=== PATIENT | male | born 1950 | race Caucasian/White ===

== ENCOUNTER 2016-09-26 16:06 | Inpatient (IN) | payer MEDICARE, BC ==
[~2016-09-26] VITALS: Ht 170.2 cm; Wt 85.7 kg
[~2016-09-26 16:06] MED LIST: AMLO10TA2 PO; ASPI325T PO; METO100T9 PO; PLAV75TA29 PO; QUIN5TAB6 PO; ROSU40 PO; ZETI10TA5 PO
[2016-09-30 09:03] VITALS: BP 139/73; PULSE 73; RESP 16; TEMP 98; O2SAT 99
[2016-09-30 09:14] LABS: AUTOMATED NEUTROPHIL # 4.6 TH/MM3 (1.8-7.7); BASOPHIL # 0.1 TH/MM3 (0-0.2); BASOPHIL % 0.8 % (0.0-2.0); EOSINOPHIL # 0.1 TH/MM3 (0-0.4); EOSINOPHIL % 1.7 % (0.0-4.0); HEMATOCRIT 42.6 % (39.0-51.0); HEMO FLAGS DIFF FINAL; LYMPH % 35.6 % (9.0-44.0); MEAN CORPUSCULAR HEMOGLOBIN 28.5 PG (27.0-34.0); MEAN CORPUSCULAR HGB CONC 34.3 % (32.0-36.0); MONO % 7.9 % (0.0-8.0); PLATELET COUNT 210 TH/MM3 (150-450); RED BLOOD COUNT 5.13 MIL/MM3 (4.50-5.90); RED CELL DISTRIBUTION WIDTH 14.1 % (11.6-17.2); WHITE BLOOD COUNT 8.6 TH/MM3 (4.0-11.0)
[2016-09-30 09:26] LABS: PROTHROMBIN TIME - PATIENT 10.6 SEC (9.8-11.6)
[2016-09-30] MEDS ORDERED: LACTATED RINGER'S 1000 ML IV SCH (09:30)
[2016-09-30] MEDS ORDERED: METOPROLOL TARTRATE 25 MG TAB PO PRN (09:30)
[2016-09-30] MEDS ORDERED: INSULIN HUMAN REGULAR 1,000 UNITS/10 ML VIAL SQ PRN (09:30)
[2016-09-30] MEDS ORDERED: SODIUM CHLORID 0.9% 500 ML IV SCH (09:30)
[2016-09-30 09:31] LABS: BICARBONATE 28.7 MEQ/L (21.0-32.0); POTASSIUM 3.4 MEQ/L (3.5-5.1)
[2016-09-30] MEDS ORDERED: FAMOTIDINE 20 MG/2 ML VIAL ONE (10:14)
[2016-09-30] MEDS ORDERED: HEPARIN SODIUM - IV 10,000 UNITS/10 ML VIAL ONE (10:56)
[2016-09-30] MEDS ORDERED: PROTAMINE SULFATE 50 MG/5 ML VIAL ONE (10:57)
[2016-09-30] MEDS ORDERED: HEPARIN SODIUM - SQ 10,000 UNITS/ML VIAL ONE (10:57)
[2016-09-30] MEDS ORDERED: IOHEXOL 300 MG/ML 50 ML BTL (for RAD DIAG) ONE (11:06)
[2016-09-30] MEDS ORDERED: LACTATED RINGER'S 1000 ML INJ 1,000 ML IV ONE (11:13)
[2016-09-30] MEDS ORDERED: NORMOSOL R INJ 1,000 ML IV ONE (11:13)
[2016-09-30] MEDS ORDERED: NEOSTIGMINE 3 MG/3 ML SYR IV ONE (11:13)
[2016-09-30] MEDS ORDERED: ONDANSETRON HCL 4 MG/2 ML VIAL IV PUSH ONE (11:13)
[2016-09-30] MEDS ORDERED: ePHEDrine/NS 25 MG/5 ML SYR IV ONE (11:13)
[2016-09-30] MEDS ORDERED: PHENYLEPH/NS 1000 MCG/10 ML SYR IV ONE (11:13)
[2016-09-30] MEDS ORDERED: PROPOFOL 200 MG/20 ML AMP IV ONE (11:13)
[2016-09-30] MEDS ORDERED: MIDAZOLAM HCL 2 MG/2 ML VIAL ONE (11:14)
[2016-09-30] MEDS ORDERED: ceFAZolin 2 GM PREMIX 50 ML ONE (11:29)
[2016-09-30] MEDS ORDERED: IOHEXOL 300 MG/ML 50 ML BTL (for RAD DIAG) OTHER ONE (11:56)
[2016-09-30] MEDS ORDERED: Post-op Orders (for Pharmacy) MISC XX ONE (14:22)
[2016-09-30] MEDS ORDERED: DO NOT ADM ANY ANTICOAGULANT DRUGS XX PRN (14:25)
[2016-09-30] MEDS ORDERED: fentaNYL CITRATE 250 MCG/5 ML AMP ONE (14:35)
[2016-09-30] MEDS ORDERED: oxyCODONE/ACETAMINOPHEN 5 MG/325 MG TAB PO PRN (15:00)
[2016-09-30] MEDS ORDERED: MORPHINE SULFATE 4 MG/ML INJ IV PRN (15:00)
[2016-09-30] MEDS ORDERED: NALOXONE HCL 0.4 MG/ML AMP IV PRN (15:00)
[2016-09-30] MEDS ORDERED: SODIUM CHLORIDE 0.9% FLUSH 5 ML FLUSH IVF PRN (15:00)
[2016-09-30] MEDS ORDERED: ONDANSETRON HCL 4 MG/2 ML VIAL IV PRN (15:00)
[2016-09-30] MEDS: SODIUM CHLOR 0.9% 1000 ML INJ 1,000 ML IV SCH (15:19)
[2016-09-30] MEDS ORDERED: PANTOPRAZOLE SOD 40 MG DELAYED RELEASE TAB PO SCH (17:00)
[2016-09-30] MEDS: SODIUM CHLORIDE 0.9% FLUSH 5 ML FLUSH IVF SCH (21:00)
[2016-09-30] MEDS ORDERED: DOCUSATE SODIUM 100 MG CAP PO SCH (21:00)
[2016-09-30 21:30] VITALS: BP 130/91; PULSE 78; RESP 18; TEMP 98.3; O2SAT 100
[2016-09-30 23:00] VITALS: BP 119/76; PULSE 68; RESP 16; TEMP 97.9; O2SAT 100
[2016-10-01] MEDS: SODIUM CHLOR 0.9% 1000 ML INJ 1,000 ML IV SCH ×2 (02:00→12:00)
[2016-10-01 03:00] VITALS: BP 129/83; PULSE 71; RESP 18; TEMP 98.1; O2SAT 100
[2016-10-01 03:41] VITALS: O2SAT 98
[2016-10-01] MEDS: SODIUM CHLORIDE 0.9% FLUSH 5 ML FLUSH IVF SCH (08:50)
[2016-10-01] MEDS ORDERED: METOPROLOL SUCCINATE 50 MG EXTENDED RELEASE TAB PO SCH (09:00)
[2016-10-01] MEDS ORDERED: CLOPIDOGREL 75 MG TAB PO SCH (09:00)
[2016-10-01] MEDS ORDERED: EZETIMIBE 10 MG TAB PO SCH (09:00)
[2016-10-01 09:37] VITALS: BP 147/88; PULSE 84; RESP 18; TEMP 97; O2SAT 98
[2016-10-01 11:34] VITALS: O2SAT 97
[2016-10-01 11:43] VITALS: BP 120/70; PULSE 82; RESP 18; TEMP 98; O2SAT 98
[2016-10-01 13:01] LABS: AUTOMATED NEUTROPHIL # 5.6 TH/MM3 (1.8-7.7); BASOPHIL % 0.5 % (0.0-2.0); EOSINOPHIL # 0.2 TH/MM3 (0-0.4); HEMATOCRIT 38.8 % (39.0-51.0); HEMO FLAGS DIFF FINAL; LYMPH % 18.7 % (9.0-44.0); LYMPHOCYTE # 1.5 TH/MM3 (1.0-4.8); MEAN CELL VOLUME 83.8 FL (80.0-100.0); MEAN CORPUSCULAR HEMOGLOBIN 27.8 PG (27.0-34.0); MEAN CORPUSCULAR HGB CONC 33.2 % (32.0-36.0); NEUT % 69.8 % (16.0-70.0); PLATELET COUNT 196 TH/MM3 (150-450); RED BLOOD COUNT 4.63 MIL/MM3 (4.50-5.90); RED CELL DISTRIBUTION WIDTH 14.3 % (11.6-17.2); WHITE BLOOD COUNT 8.1 TH/MM3 (4.0-11.0)
[2016-10-01 13:25] LABS: BICARBONATE 27.2 MEQ/L (21.0-32.0); POTASSIUM 3.2 MEQ/L (3.5-5.1)
[2016-10-01] MEDS ORDERED: ENOXAPARIN SODIUM 40 MG/0.4 ML SYRINGE SQ SCH (14:00)
--- NOTE | 2016-10-01 14:13 | PD.CAR.PN ---
CVT Progress Note Subjective/Hospital Course: 66-year-old status post left common iliac artery balloon angioplasty stent and common femoral and external iliac artery patch/endarterectomy Incision clean and dry Palpable pulse in the groin strong distal pulses and posterior tibial and dorsalis pedis artery as well as popliteal artery Foot is nice and warm patient is ambulating with ease Discharge patient today Objective: Vital Signs Date Time Temp Pulse Resp B/P Pulse Ox O2 Delivery O2 Flow Rate FiO2 10/01/16 11:43 98.0 82 18 120/70 98 10/01/16 11:34 97 21 10/01/16 09:37 97.0 84 18 147/88 98 10/01/16 03:41 98 Nasal Cannula 2.00 10/01/16 03:00 98.1 71 18 129/83 100 09/30/16 23:00 97.9 68 16 119/76 100 09/30/16 21:30 98.3 78 18 130/91 100 09/30/16 21:30 71 16 131/74 97 Nasal Cannula 2 09/30/16 21:00 73 16 108/60 95 Nasal Cannula 2 09/30/16 20:30 98.7 79 15 130/76 99 Nasal Cannula 2 09/30/16 20:00 84 18 137/76 99 Nasal Cannula 2 09/30/16 19:00 76 17 124/73 99 Nasal Cannula 2 09/30/16 18:00 69 16 125/74 99 Nasal Cannula 2 09/30/16 17:00 64 14 135/75 99 Nasal Cannula 2 09/30/16 16:30 81 13 122/73 99 Nasal Cannula 2 09/30/16 16:00 70 12 127/75 99 Nasal Cannula 2 09/30/16 15:45 72 12 123/71 99 Nasal Cannula 2 09/30/16 15:30 72 17 121/74 99 Nasal Cannula 2 09/30/16 15:15 76 12 124/77 99 Nasal Cannula 2 09/30/16 15:00 73 13 127/74 99 Nasal Cannula 2 09/30/16 14:45 72 12 125/70 99 Nasal Cannula 2 09/30/16 14:25 99.1 49 16 134/80 97 Nasal Cannula 2 Labs: Laboratory Tests Test 10/01/16 12:23 White Blood Count 8.1 TH/MM3 (4.0-11.0) Red Blood Count 4.63 MIL/MM3 (4.50-5.90) Hemoglobin 12.9 GM/DL (13.0-17.0) Hematocrit 38.8 % (39.0-51.0) Mean Corpuscular Volume 83.8 FL (80.0-100.0) Mean Corpuscular Hemoglobin 27.8 PG (27.0-34.0) Mean Corpuscular Hemoglobin 33.2 % Concent (32.0-36.0) Red Cell Distribution Width 14.3 % (11.6-17.2) Platelet Count 196 TH/MM3 (150-450) Mean Platelet Volume 9.6 FL (7.0-11.0) Neutrophils (%) (Auto) 69.8 % (16.0-70.0) Lymphocytes (%) (Auto) 18.7 % (9.0-44.0) Monocytes (%) (Auto) 9.0 % (0.0-8.0) Eosinophils (%) (Auto) 2.0 % (0.0-4.0) Basophils (%) (Auto) 0.5 % (0.0-2.0) Neutrophils # (Auto) 5.6 TH/MM3 (1.8-7.7) Lymphocytes # (Auto) 1.5 TH/MM3 (1.0-4.8) Monocytes # (Auto) 0.7 TH/MM3 (0-0.9) Eosinophils # (Auto) 0.2 TH/MM3 (0-0.4) Basophils # (Auto) 0.0 TH/MM3 (0-0.2) CBC Comment DIFF FINAL Differential Comment Sodium Level 140 MEQ/L (136-145) Potassium Level 3.2 MEQ/L (3.5-5.1) Chloride Level 104 MEQ/L (98-107) Carbon Dioxide Level 27.2 MEQ/L (21.0-32.0) Anion Gap 9 MEQ/L (5-15) Blood Urea Nitrogen 12 MG/DL (7-18) Creatinine 0.88 MG/DL (0.60-1.30) Estimat Glomerular Filtration 86 ML/MIN (>89) Rate Random Glucose 144 MG/DL (74-106) Calcium Level 8.3 MG/DL (8.5-10.1) Result Diagram: 10/01/16 1223 10/01/16 1223 Shaila Bryson MD Oct 01, 2016 14:12
[2016-10-01] MEDS ORDERED: PERC5TAB12 PO (14:16)
--- NOTE | 2016-10-04 09:31 | MP ---
cc: SHAILA GAUTHIER MD DATE OF SURGERY: 09/30/2016 PREOPERATIVE DIAGNOSIS 1. 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 2. Stenosis of the left common femoral/external iliac arteries. POSTOPERATIVE DIAGNOSIS 1. 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 2. Severe stenosis of the left common femoral/external iliac arteries. OPERATIVE PROCEDURE 1. Left common femoral artery balloon angioplasty and stenting with a 6 mm Medtronic self-expanding stent. 2. Left common femoral/external iliac artery endarterectomy, patch angioplasty, arteriogram x4. SURGEON Braydon ANESTHESIA General. ESTIMATED BLOOD LOSS 200 cc. The patient is prepped and draped in usual fashion. A left groin incision is made and deepened down to the level of the common femoral, superficial femoral and deep femoral arteries. Each are placed on a vessel loop. The patient is given 5000 units of heparin. A micro needle is now inserted into the common femoral artery on the left and through the needle a micro wire is placed. Over the micro wire a micro dilator is placed and through this a Glidewire is introduced. Over the Glidewire a 6-B[place] sheath is placed and sutured in place. Through the 6-B[place]i sheath the Glidewire is placed and manipulated into the common iliac artery; however, it does not go further than about three inches distal to the bifurcation. Therefore, an arteriogram is obtained and the patient has complete occlusion of the left common iliac artery about an inch and a half distal to the bifurcation. Now a Roadrunner catheter is utilized. This was introduced and over the Roadrunner a De La Fuente catheter is placed. Together these are very carefully manipulated up into the vessel and then the occlusion is bridged and the aorta is entered. Now through the De La Fuente catheter I exchanged for a Stiff wire. A 6 mm x 40 mm balloon is now introduced and inflated. I figured this would be quite sufficient because there is no way to get more dilatation from this occlusion. The 6 mm balloon is now deflated several times, brought gradually lower down and then a 6 mm x 60 mm self-expanding stent is placed and final third arteriogram obtained. This shows excellent distal flow. This ends the endovascular part of the procedure. The external iliac artery is now clamped with a Satinsky clamp and then the deep femoral with a profunda clamp. The vessels are opened longitudinally with Zuleta scissors and there is a huge plaque that extends into the external iliac artery posteriorly and continues to the common femoral artery and deep femoral artery. This vein is dissected in a media plane using a [place] dissector and then removed. This is a crumbly hard plaque. Some of the additional debris is now removed and washed out and then a bovine patch, 8 mm x 6 cm utilized. This was sewn in with running 6-0 Prolene reconstructing the vessel. The clamps are now removed in the usual order flushing the vessel and then blood flow is reestablished. At the end of the procedure the patient has bounding distal pulses and an excellent signal in the groin. The area is irrigated with saline and closed with 2-0 Vicryl in layers and 4-0 Monocryl. Benzoin and Steri-Strips applied. The patient tolerated the procedure well and was taken out of the operating room in stable condition. Shaila DIAZ/DEBI /6:33 PM /9:04 AM
== END 2016-10-01 15:05 | disposition home or self-care (01) | DRG 272 ==
LOC: HSDI 09-30 08:24 → EDSTATUS 09-30 10:00 → HCIS 09-30 21:41
PROVIDERS: ADMIT Surgery; ATTEND Surgery
PROC: 04U Lower Arteries, Supplement (ICD-10-PCS; 2016-09-30)
PROC: 047D3DZ Dilation of Left Common Iliac Artery with Intraluminal Device, Percutaneous Approach (ICD-10-PCS; 2016-09-30)
PROC: 047L3ZZ Dilation of Left Femoral Artery, Percutaneous Approach (ICD-10-PCS; 2016-09-30)
PROC: 04CD0ZZ Extirpation of Matter from Left Common Iliac Artery, Open Approach (ICD-10-PCS; principal; 2016-09-30 11:21)
PROC: 04CL0ZZ Extirpation of Matter from Left Femoral Artery, Open Approach (ICD-10-PCS; 2016-09-30 11:21)
DX: I70.8 Atherosclerosis of other arteries (principal); E11.9 Type 2 diabetes mellitus without complications; I70.202 Unspecified atherosclerosis of native arteries of extremities, left leg
CPT/HCPCS: 75710; 80048; 85025; 85610; 86850; 86900; 86901; 88304; 88311; 94150; C1725; C1768; C1769; C1876; J0690; J1644; J2250; J2370; J2405; J2710; J2720; J3010; J7030; J7120; Q9967